=== PATIENT | male | born 1970 | race Two or more races ===

== ENCOUNTER 2021-06-17 00:41 | Emergency (ER) | payer SELFPAY ==
[2021-06-17 01:30] LABS: BASOPHIL 0.6 % (0-2); EOSINOPHIL 0.5 % (0-5); HCT 44.9 % (42.0-52.0); HGB 15.5 g/dl (13.2-18.0); LYMPHOCYTE 13.9 % (15-48); MCH 30.4 pg (25.0-31.0); MCHC 34.5 g/dL (32.0-36.0); NEUTROPHIL 80.6 % (41-80); NRBC 0; PLT 277 K/uL (150-400); RDW 13.5 % (11.5-14.0); WBC 10.2 K/uL (4.0-10.5)
[2021-06-17 01:56] LABS: ALBUMIN 3.6 g/dL (3.4-5.0); BILIRUBIN - TOTAL 0.2 mg/dL (0.2-1.0); BUN/CREAT RATIO (CALC) 21.5 RATIO; CREATININE 0.79 mg/dL (0.67-1.17); GLOBULIN (CALCULATION) 4.5 g/dL; POTASSIUM 3.7 mmol/L (3.5-5.1); TOTAL PROTEIN 8.1 g/dL (6.4-8.2)
[2021-06-17] MEDS ORDERED: KEFLEX250 MG PO (02:58)
== END 2021-06-17 04:05 | disposition home or self-care (01) ==
LOC: FER 00:41
PROVIDERS: Emergency Medicine
DX: S01.81XA Laceration without foreign body of other part of head, initial encounter (principal); S09.90XA Unspecified injury of head, initial encounter; R07.9 Chest pain, unspecified; Z23 Encounter for immunization; W01.0XXA Fall on same level from slipping, tripping and stumbling without subsequent striking against object, initial encounter; Y92.69 Other specified industrial and construction area as the place of occurrence of the external cause; Y99.0 Civilian activity done for income or pay
CPT/HCPCS: 36415; 70450; 70486; 71045; 72125; 80053; 84484; 85025; 90471; 90715; 93005